=== PATIENT | male | born 1960 ===

== ENCOUNTER 2019-05-02 08:03 | Outpatient (CLI) | payer BC, SELFPAY ==
--- NOTE | 2019-05-07 04:46 | SLEEP_ITS ---
Home Sleep Test DATE OF STUDY: 05/02/2019 ORDERING PHYSICIAN: Keyanna Cruz MD. REASON FOR THE STUDY: Obstructive sleep apnea syndrome. HISTORY: This 58-year-old man is 5 feet 8 inches tall, weighing 210 pounds with a body mass index of 31.9. His tells him that he stops breathing at night and he kicks his left leg when he awakens and starts to breathe again. His brother uses CPAP, so there is a family history. He occasionally awakens from sleep feeling short of breath, with heartburn, belching, or coughing and loud snoring. He rarely snores loudly enough that others complain about it. He occasionally has trouble sleeping with a cold. He frequently wakes up gasping for breath at night. He constantly has breathing problems at night observed by others. He does not sweat excessively at night. He occasionally notices his heart pounding or beating irregularly at night. He frequently falls asleep during the day, frequently involuntarily, but never while driving. He does not have loss of muscle tone with strong emotion and does not have daytime difficulty at work due to excessive sleepiness. He works in law enforcement. He does not feel paralyzed on waking or falling asleep. He does not have vivid dreamlike scenes upon awakening or falling asleep. He is not afraid to go to sleep. He rarely has nightmares and rarely remembers his dreams. He occasionally has racing thoughts, sadness, depression, anxiety, and muscular tension. He occasionally notices parts of his body jerking. He frequently kicks at night. He rarely has crawly achy feelings in the legs and rarely has leg pain at night. He rarely grinds his teeth at night. He occasionally is bothered by pain during the day. He rarely is awakened by pain at night. He occasionally wakes up feeling stiff in the morning with sore achy muscles and pain in the neck and spine. He has depression, memory problems, insomnia, and takes Tums regularly. Bedtime is 10:30 p.m., taking 30 to 45 minutes to fall asleep, waking twice at night for 5 minutes to urinate. He wakes for the day at 4:45 a.m. He estimates 5 hours of sleep per night. On the weekends, he goes to bed at 2 a.m. and wakes at 7:30 a.m. He no longer works split shifts, stopped this in 2007 after many years. He does not take naps. A short nap may be refreshing. Most of the time he feels good in the morning. MEDICAL COMORBIDITIES: Arthritis, depression, heartburn. MEDICATIONS: Phentermine, Flonase allergy release spray, Topamax, all as directed. HABITS: Never smoked tobacco. 6 caffeinated beverages a day. Alcohol on the weekends. DESCRIPTION OF THE STUDY: On the [place] Sleepiness Scale, his score is 14, elevated. This was conducted as an unattended type 3 portable home sleep test using 4 channel monitoring with respiratory effort channel, snoring channel, oxygen saturation channel, and heart rate channel. This study was scored using [facility] guidelines. Duration of the study was 8 hours 8 minutes. The apnea-hypopnea index is 11. The oxygen desaturation index is 10. The lowest desaturation is 83%. The baseline saturation is 92%. He had 19 apneas. Of these 19 apneas, 17 or 89% were centrals, 2 apneas or 11% were obstructive, with 70 hypopneas and 150 episodes of snoring. He desaturated 81 times and maintained a saturation below 88% for 112 minutes, which was 23% of the study. IMPRESSION: This home sleep test shows evidence of at least mild sleep-disordered breathing G47.33 with more central than obstructive apneas, 89% central versus 11 obstructive, 70 hypopneas and significant desaturation to 83% spending almost 2 hours below 88%. Home sleep test underestimates the degree of sleep-disordered breathing as it assumes the patient is asleep the
== END 2019-05-02 08:04 | disposition home or self-care (01) ==
LOC: ANHCSM 08:05
PROVIDERS: PCP Family Medicine; Visit Provider Family Medicine
DX: G47.33 Obstructive sleep apnea (adult) (pediatric) (principal); Z68.31 Body mass index [BMI] 31.0-31.9, adult
CPT/HCPCS: 95806

== ENCOUNTER 2019-12-03 03:09 | Outpatient (CLI) | payer BC, SELFPAY ==
[2019-12-03 18:16] LABS: SARS-CoV-2 RNA PCR Negative
== END 2019-12-03 03:10 | disposition home or self-care (01) ==
LOC: ANHCOVIDDT 03:10
PROVIDERS: PCP Family Medicine; Visit Provider Internal Medicine Critical Care Medicine
DX: Z01.812 Encounter for preprocedural laboratory examination (principal); Z20.828 Contact with and (suspected) exposure to other viral communicable diseases
CPT/HCPCS: 87635; C9803; U0003

== ENCOUNTER 2019-12-05 08:42 | Outpatient (CLI) | payer BC, SELFPAY ==
--- NOTE | 2019-12-27 08:57 | WPDSLEEPSTUD ---
Sleep Study Date of Study: 12/05/19 Ordering Provider: Keyanna Cruz MD Interpreting Physician: Julissa Reis MD Sleep Study Type: Split Polysomnogram Height: 1.73 m Weight: 92.986 kg Body Mass Index: 31.1 [place]: 14 Reason for Sleep Study witnessed apneas home Sleep Test 05/02/2019 with mild sleep apnea more central than obstructive events Sleep History Oli Davis is a 59-year-old man is 5 feet 8 inches tall, weighing 205 pounds with a body mass index of 31.2. On May 02 2019 he had a home sleep test with an AHI of 11, oxygen desaturation index of 10, minimum saturation of 83%. He had a majority apneas were central, 89% compared to 11% obstructive apneas. He presents now for a titration. His tells him that he stops breathing at night and he kicks his left leg when he awakens and starts to breathe again. His brother uses CPAP, so there is a family history. He occasionally awakens from sleep feeling short of breath, with heartburn, belching, or coughing and loud snoring. He rarely snores loudly enough that others complain about it. He occasionally has trouble sleeping with a cold. He frequently wakes up gasping for breath at night. He constantly has breathing problems at night observed by others. He does not sweat excessively at night. He occasionally notices his heart pounding or beating irregularly at night. He frequently falls asleep during the day, frequently involuntarily, but never while driving. He does not have loss of muscle tone with strong emotion and does not have daytime difficulty at work due to excessive sleepiness. He works in law enforcement. He does not feel paralyzed on waking or falling asleep. He does not have vivid dreamlike scenes upon awakening or falling asleep. He is not afraid to go to sleep. He rarely has nightmares and rarely remembers his dreams. He occasionally has racing thoughts, sadness, depression, anxiety, and muscular tension. He occasionally notices parts of his body jerking. He frequently kicks at night. He rarely has crawly achy feelings in the legs and rarely has leg pain at night. He rarely grinds his teeth at night. He occasionally is bothered by pain during the day. He rarely is awakened by pain at night. He occasionally wakes up feeling stiff in the morning with sore achy muscles and pain in the neck and spine. He has depression, memory problems, insomnia, and takes Tums regularly. Bedtime is 10:30 p.m., taking 30 to 45 minutes to fall asleep, waking twice at night for 5 minutes to urinate. He wakes for the day at 4:45 a.m. He estimates 5 hours of sleep per night. On the weekends, he goes to bed at 2 a.m. and wakes at 7:30 a.m. He no longer works split shifts, stopped this in 2007 after many years. He does not take naps. A short nap may be refreshing. Most of the time he feels good in the morning. HABITS: Never smoked tobacco. 6 caffeinated beverages a day. Alcohol on the weekends. COUNTS INCLUDE 234 BEDS AT THE [facility] Past Medical History Medical History (Updated 12/27/19 @ 09:16 by Julissa Reis MD) Depression Heartburn Family History Family History Mother Diabetes mellitus Father Family history of cardiovascular disease Social History Social History (System 06/05/19 @ 12:16 by Teresa Milian) Smoking status: Never smoker Alcohol intake: current Medications Medications: Phentermine, Flonase allergy release spray, Topamax, all as directed. Sleep Procedure This test was performed using the same and multiple channel system including EOG, EEG, submental EMG, EKG, nasal and oral airflow using thermistors and nasal pressure sensors, chest and abdominal belts for body position data, and pulse oximetry. Video monitoring was also performed. The study was scored using CMS guidelines. The patient was scheduled for a full titration however was accidentally started as a split night and then he was switched over
[2019-12-27 09:20] VITALS: BMI 31.1
== END 2019-12-05 08:43 | disposition home or self-care (01) ==
LOC: ANHCSM 08:43
PROVIDERS: PCP Family Medicine; Visit Provider Family Medicine
DX: G47.33 Obstructive sleep apnea (adult) (pediatric) (principal)
CPT/HCPCS: 95811